=== PATIENT | female | born 1955 | race Caucasian/White ===

== ENCOUNTER → 2016-11-08 | Outpatient (CLI) | payer BC ==
[2016-11-08 21:19] LABS: BASO # 0.1 K/mm3 (0.0-0.2); BASO % 1.3 % (0.0-1.0); EOS # 0.2 K/mm3 (0.0-0.50); EOS % 1.9 % (0.0-3.0); LARGE UNSTAINED CELL # 0.3 K/mm3 (0.0-0.4); LARGE UNSTAINED CELL % 3.8 % (0.0-4.0); LYMPH # 1.6 K/mm3 (1.5-4.5); MEAN CORPUSCULAR HEMOGLOBIN 30.8 pg (27.0-33.0); MEAN CORPUSCULAR HGB CONC 33.8 g/dl (32.0-36.5); MEAN CORPUSCULAR VOLUME 90.9 fl (80.0-96.0); MONO # 0.7 K/mm3 (0.0-0.8); MONO % 8.7 % (0.0-5.0); NEUTROPHILS # 4.8 K/mm3 (1.8-7.7); NEUTROPHILS % 63.3 % (36.0-66.0); PLATELET COUNT, AUTOMATED 250 k/mm3 (150-450); WHITE BLOOD COUNT 7.6 K/mm3 (4.0-10.0)
[2016-11-08 21:39] LABS: ALBUMIN 3.8 GM/DL (3.2-5.2); ALBUMIN/GLOBULIN RATIO 1.19 (1.00-1.93); ALKALINE PHOSPHATASE 79 U/L (45-117); ALT/SGPT 33 U/L (12-78); ANION GAP 7 MEQ/L (8-16); AST/SGOT 21 U/L (15-37); BILIRUBIN,TOTAL 0.5 MG/DL (0.2-1.0); BLOOD UREA NITROGEN 19 MG/DL (7-18); CALCIUM LEVEL 8.9 MG/DL (8.5-10.1); CARBON DIOXIDE LEVEL 30 MEQ/L (21-32); CHLORIDE LEVEL 103 MEQ/L (98-107); CHOLESTEROL LEVEL 213 MG/DL (<200); CREATININE FOR GFR 0.78 MG/DL (0.55-1.02); FREE T4 0.97 NG/DL (0.76-1.46); GLOMERULAR FILTRATION RATE > 60.0 (>51); GLUCOSE, FASTING 68 MG/DL (70-105); POTASSIUM SERUM 4.2 MEQ/L (3.5-5.1); SODIUM LEVEL 140 MEQ/L (136-145); TRIGLYCERIDES LEVEL 113 MG/DL (<150)
--- NOTE | 2016-11-08 22:27 | REP ---
Clinical: Pain. Technique: Neutral and frog lateral views of the left hip. Findings: Mild early arthritic degenerative changes include joint space narrowing, increased sclerosis to the acetabular roof with subtle marginal spurring as well as spurring along the femoral head. No periarticular calcifications. No acute fracture or dislocation. Impression: Mild early arthritic degenerative changes. Signed by Almas Curtis MD 11/08/2016 10:18 P
== END ==
LOC: M LAB 20:15
PROVIDERS: ATTEND Nurse Practitioner
DX: I45.9 Conduction disorder, unspecified (principal)

== ENCOUNTER → 2020-05-28 | Outpatient (CLI) | payer SELFPAY ==
[~2020-05-28] MED LIST: LEVO25TA5 PO
== END ==
LOC: M LABSMTC 10:57
PROVIDERS: ATTEND Pediatrics
DX: Z20.822 Contact with and (suspected) exposure to COVID-19 (principal)

== ENCOUNTER → 2020-11-18 | Outpatient (REF) | payer BC | LOC: M SFHCWAGY 17:19 | PROVIDERS: ATTEND Nurse Practitioner Women's Health | DX: Z12.4 Encounter for screening for malignant neoplasm of cervix (principal); R87.618 Other abnormal cytological findings on specimens from cervix uteri ==

== ENCOUNTER → 2020-11-30 | Outpatient (CLI) | payer BC ==
--- NOTE | 2020-11-30 17:15 | REP ---
INDICATION: N63.20 LT BREAST MASS. COMPARISON: Multiple TECHNIQUE: Digital bilateral mammography was carried out in the CC and MLO projections using both 2D and 3D modalities and compared to the prior exams. There are no prior DBT images for comparison. In addition, diagnostic digital magnified spot compression views of the left breast were obtained upper outer quadrant with the patient's clinician feels a palpable abnormality. Ultrasonography of this region was also obtained. FINDINGS: The breasts are unchanged in size and shape. There are no masses. There is no internal architectural distortion. There are no suspicious calcifications. There is no skin thickening or nipple retraction. Diagnostic digital magnified spot compression views left breast over the region of interest shows no abnormalities. Diagnostic ultrasonography left breast over the region of interest shows no abnormalities. The Volpara volumetric breast density pattern is b. IMPRESSION: BIRADS/ACR category 1 negative mammogram. There is no ultrasonographic evidence or mammographic evidence of malignant alteration. This patient's Tyrer-Cuzick lifetime breast cancer risk assessment score is 8.8 %. This mammogram was interpreted with the aid of an FDA-approved computer-aided detection system. The patient states she had a clinical breast exam in November 2020. The patient letter being requested is M2 RECOMMENDATION: Repeat screening mammography recommended 1 year (for women over 40). A negative mammogram and a negative breast ultrasound examination should never curtail biopsy of a clinically palpable mass or clinically suspicious area the breast. Consider surgical consultation and/or breast MRI. <Electronically signed by Wing Marquez > 11/30/20 [id number]
== END ==
LOC: M WHC 10:42
PROVIDERS: ATTEND Nurse Practitioner Women's Health
DX: N63.20 Unspecified lump in the left breast, unspecified quadrant (principal)
CPT/HCPCS: 76642; 77066; G0279

== ENCOUNTER 2021-01-02 11:52 | Emergency (ER) | payer BC ==
[~2021-01-02] VITALS: Ht 165.1 cm; Wt 103.5 kg
[2021-01-02 12:41] LABS: BASO % 0.6 % (0.0-1.0); EOS # 0.2 10^3/uL (0.0-0.5); EOS % 2.4 % (0.0-3.0); HEMATOCRIT 39.7 % (36.0-47.0); HEMOGLOBIN 13.2 g/dl (12.0-15.5); LYMPH # 1.4 10^3/uL (1.5-5.0); LYMPH % 19.5 % (24.0-44.0); MEAN CORPUSCULAR HEMOGLOBIN 30.1 pg (27.0-33.0); MEAN CORPUSCULAR HGB CONC 33.2 g/dl (32.0-36.5); MEAN CORPUSCULAR VOLUME 90.6 fl (80.0-96.0); MONO # 0.9 10^3/uL (0.0-0.8); NEUTROPHILS # 4.6 10^3/uL (1.5-8.5); NEUTROPHILS % 64.2 % (36.0-66.0); PLATELET COUNT, AUTOMATED 266 10^3/uL (150-450); RED BLOOD COUNT 4.38 10^6/uL (4.00-5.40); WHITE BLOOD COUNT 7.1 10^3/uL (4.0-10.0)
--- NOTE | 2021-01-02 12:47 | REP ---
INDICATION: trauma to right flank COMPARISON: None TECHNIQUE: Axial noncontrast images from the thoracic inlet to the upper abdomen with coronal and sagittal reformations. This CT examination was performed using the following dose reduction techniques: Automated exposure control, adjustment of mA and/or kv according to the patient's size, and use of iterative reconstruction technique. FINDINGS: Lung [place] demonstrate minimal bibasilar atelectasis (right greater than left). Few scattered noncalcified pulmonary nodules up to approximately 6 mm are noted bilaterally. No effusion. No pneumothorax. Tracheobronchial tree is patent. Mild cardiomegaly should be correlated clinically. No pericardial effusion. Thoracic aorta without aneurysm. IMPRESSION: 1. Mild bibasilar atelectasis (right greater than left). No consolidation/contusion, effusion, or pneumothorax. 2. Scattered pulmonary nodules up to 6 mm. Differential diagnosis includes but is not limited to granulomatous disease and metastatic disease. No prior examinations are available for comparison and follow-up examination at 6 months is recommended. <Electronically signed by Almas Curtis > 01/02/21 [id number]
--- NOTE | 2021-01-02 12:50 | REP ---
INDICATION: trauma to right flank COMPARISON: None TECHNIQUE: Axial noncontrast images from the lung bases to the pubic symphysis with coronal and sagittal reformations. This CT examination was performed using the following dose reduction techniques: Automated exposure control, adjustment of mA and/or kv according to the patient's size, and use of iterative reconstruction technique. FINDINGS: Liver, spleen, pancreas, gallbladder, bilateral adrenal glands and kidneys are normal for noncontrast evaluation. There is no evidence for solid organ injury.. The enteric system is unremarkable and without obstruction or acute inflammatory process. Normal terminal ileum and appendix identified in the right lower quadrant. Pelvis demonstrates normal bladder and age-appropriate uterus/adnexa. No ascites. No free air. No adenopathy. No focal inflammatory stranding. Abdominal aorta without aneurysm. Musculoskeletal structures are intact and without acute osseous abnormality. IMPRESSION: No acute abdominopelvic pathology appreciated. No evidence for trauma/injury. <Electronically signed by Almas Curtis > 01/02/21 [id number]
[2021-01-02 13:03] LABS: ALBUMIN 3.6 GM/DL (3.2-5.2); ALT/SGPT 24 U/L (12-78); BILIRUBIN,TOTAL 0.5 MG/DL (0.2-1.0); BLOOD UREA NITROGEN 17 MG/DL (7-18); CARBON DIOXIDE LEVEL 29 MEQ/L (21-32); CHLORIDE LEVEL 110 MEQ/L (98-107); CREATININE FOR GFR 0.64 MG/DL (0.55-1.30); GLOMERULAR FILTRATION RATE > 60.0 (>45); GLUCOSE, FASTING 81 MG/DL (70-100); POTASSIUM SERUM 4.6 MEQ/L (3.5-5.1); SODIUM LEVEL 142 MEQ/L (136-145)
[2021-01-02 13:30] VITALS: BP 141/77
--- NOTE | 2021-01-03 06:38 | ED PDOC ---
Post-Departure Follow-Up ct chest faed to margarita mcintyre fu Chantale Devlin MD Jan 03, 2021 06:38
== END 2021-01-02 13:31 | disposition home or self-care (01) ==
LOC: M ED 11:52
DX: S20.211A Contusion of right front wall of thorax, initial encounter (principal); W18.39XA Other fall on same level, initial encounter; Y92.018 Other place in single-family (private) house as the place of occurrence of the external cause; E03.9 Hypothyroidism, unspecified; Z79.890 Hormone replacement therapy

== ENCOUNTER → 2021-08-05 | Outpatient (CLI) | payer BC ==
[~2021-08-05] MED LIST changes: +LEVO50TA5 PO
== END ==
LOC: M LABSMTC 11:43
PROVIDERS: ATTEND Anesthesiology
DX: Z01.812 Encounter for preprocedural laboratory examination (principal); Z20.822 Contact with and (suspected) exposure to COVID-19

== ENCOUNTER → 2021-09-26 | Outpatient (CLI) | payer BC | LOC: M LABSMTC 12:01 | PROVIDERS: ATTEND Anesthesiology | DX: Z01.818 Encounter for other preprocedural examination (principal); Z11.52 Encounter for screening for COVID-19 ==

== ENCOUNTER 2021-09-30 09:53 | Day surgery (SDC) | payer BC ==
[~2021-09-30] VITALS: Ht 165.1 cm; Wt 102.5 kg
[~2021-09-30 09:53] MED LIST changes: +NS 1,000 ML IV ONE
[2021-09-30] MEDS ORDERED: propofoL 200 MG/20 ML VIAL As Ordered ONE (10:36)
[2021-09-30] MEDS ORDERED: LIDOCAINE 2% 100MG/5ML SDV (FOR ANES.) As Ordered ONE (10:36)
[2021-09-30 11:10] VITALS: BP 132/63
== END 2021-09-30 11:18 | disposition home or self-care (01) ==
LOC: M OPP 09:53
PROVIDERS: ATTEND Internal Medicine Gastroenterology
DX: Z12.11 Encounter for screening for malignant neoplasm of colon (principal); D12.2 Benign neoplasm of ascending colon; Z79.899 Other long term (current) drug therapy; Z88.8 Allergy status to other drugs, medicaments and biological substances; Z91.048 Other nonmedicinal substance allergy status

== ENCOUNTER → 2022-11-01 | Outpatient (CLI) | payer BC ==
[~2022-11-01] MED LIST changes: -NS 1,000 ML IV ONE
[2022-11-01 17:47] LABS: ALBUMIN 4.2 G/DL (3.2-5.2); ALKALINE PHOSPHATASE 71 U/L (46-116); ALT/SGPT 25 U/L (7.0-40); AST/SGOT 17 U/L (<34); BILIRUBIN,TOTAL 0.8 MG/DL (0.3-1.2); BLOOD UREA NITROGEN 13 MG/DL (9-23); CALCIUM LEVEL 9.3 MG/DL (8.3-10.6); CARBON DIOXIDE LEVEL 27 MMOL/L (20-31); CHLORIDE LEVEL 104 MMOL/L (98-107); CHOLESTEROL LEVEL 203 MG/DL (<200); CHOLESTEROL RISK RATIO 3.97 (<5); CREATININE FOR GFR 0.53 MG/DL (0.55-1.30); GLOMERULAR FILTRATION RATE > 60.0 (>45); GLUCOSE, FASTING 70 MG/DL (74-106); HDL CHOLESTEROL 51.1 MG/DL (>40); LDL CHOLESTEROL 132.5 MG/DL (<100); NON-HDL-C 151.9 MG/DL; POTASSIUM SERUM 4.2 MMOL/L (3.5-5.1); SODIUM LEVEL 138 MMOL/L (136-145); TOTAL PROTEIN 6.7 G/DL (5.7-8.2); TRIGLYCERIDES LEVEL 97 MG/DL (<150)
[2022-11-01 17:51] LABS: THYROID STIMULATING HORMONE 1.168 uIU/ML (0.55-4.78)
== END ==
LOC: M LAB 16:23
PROVIDERS: ATTEND Internal Medicine
DX: E03.9 Hypothyroidism, unspecified (principal)